=== PATIENT | male | born 1935 | race Caucasian/White ===

== ENCOUNTER 2020-10-28 11:00 | Outpatient (REF) | payer MEDICARE, SELFPAY | END 2020-10-28 11:01 | disposition home or self-care (01) | LOC: HO.LAB 11:00 | PROVIDERS: PCP Internal Medicine; Visit Provider Internal Medicine | DX: Z20.822 Contact with and (suspected) exposure to COVID-19 (principal) | CPT/HCPCS: 36415; C9803; U0003 ==

== ENCOUNTER 2021-01-11 14:23 | Emergency (ER) | payer MEDICARE, SELFPAY ==
[2021-01-11 15:12] VITALS: BP 177/84; PULSE 66; RESP 18; TEMP 36.7; O2SAT 99; BMI 22.8
[2021-01-11 18:48] LABS: MANUAL DIFF FLAG NO
[2021-01-11 18:49] LABS: Basophils Percent Auto 0.4 % (0-2); Eosinophils Absolute Auto 0.1 X10*3/uL (0.0-0.4); Eosinophils Percent Auto 1.6 % (0-4); Hematocrit 41.5 % (42-52); Imm Gran Abs Auto 0.02 X10*3/uL (0.00-0.03); Imm Gran Pct Auto 0.3 % (0.0-0.4); Lymphocytes Absolute Auto 1.2 X10*3/uL (1.2-4.9); Lymphocytes Percent Auto 17.6 % (20-40); Mean Corpuscular HGB Conc 33.7 g/dl (31.0-36.0); Mean Corpuscular Hemoglobin 31.5 pg (27.0-33.0); Mean Corpuscular Volume 93.3 fL (80-98); Mean Platelet Volume 11.1 fL (9.4-12.4); Monocytes Absolute Auto 0.4 X10*3/uL (0.1-1.2); Monocytes Percent Auto 5.3 % (2-11); Neutrophils Absolute Auto 5.2 X10*3/uL (2.0-8.3); Neutrophils Percent Auto 74.8 % (45-73); Platelet Count 204 X10*3/uL (160-400); Red Blood Count 4.45 X10*6/uL (4.60-5.80); Red Cell Distribution Width 11.8 % (11.0-16.0); White Blood Count 6.9 X10*3/uL (4.8-10.8)
[2021-01-11 18:55] LABS: Prothrombin Time 12.2 SEC (10.8-13.0)
[2021-01-11 18:58] LABS: Partial Thromboplastin Time 33.6 SEC (24.1-38.0)
[2021-01-11 19:12] LABS: Alanine Aminotransferase 29 U/L (0-40); Albumin Level 4.5 g/dL (3.5-5.0); Alkaline Phosphatase 59 U/L (39-117); Anion Gap 14 (12-20); Aspartate Amino Transferase 26 U/L (5-37); Bilirubin Direct 0.3 mg/dL (0.0-0.5); Bilirubin Total 0.9 mg/dL (0.0-1.0); Blood Urea Nitrogen 12 mg/dL (9-16); Calcium 9.3 mg/dL (8.4-10.2); Carbon Dioxide 30 mmol/L (22-29); Chloride 101 mmol/L (96-108); Creatinine Clr Calc Pharmacy 71.1; Estimated Glomerular Filt Rate > 60; Glucose Random 91 mg/dL (60-115); Lipase 12 U/L (8-78); Potassium 3.9 mmol/L (3.3-5.1); Sodium 141 mmol/L (135-145); Total Protein 7.5 g/dL (6.5-8.0)
[2021-01-11 21:32] VITALS: BP 170/80; PULSE 65
[2021-01-11 21:35] VITALS: BP 179/82; PULSE 63
[2021-01-11 21:35] LABS: OBS Int Ctl Valid YES; OBS1 NEGATIVE (NEGATIVE)
[2021-01-11 21:36] VITALS: BP 172/81; PULSE 64
[2021-01-11 21:39] VITALS: BP 172/81; PULSE 64; RESP 18; TEMP 36.6; O2SAT 98
--- NOTE | 2021-01-11 21:45 | ED_ITS ---
HPI - GI Bleed General Chief complaint: GI Bleed Stated complaint: RECTAL BLEED Time Seen by Provider: 01/11/21 21:17 History of Present Illness HPI Narrative: Patient is 85 years old presents today with having brown stool that looks darker than usual. Patient denies any fever chills no chest pain or shortness of breath no systemic complaints. Patient from home. Patient not on blood thinners. Related Data Allergies Allergy/AdvReac Type Severity Reaction Status Date / Time Penicillins Allergy Unknown ANXIETY Verified 01/11/21 15:12 Review of Systems Review of Systems: Constitutional: No Weight loss, No Fever, No Chills, No Night Sweats, No Fatigue, No Malaise ENT/Mouth: No Hearing loss, No Ear Pain, No Nasal Congestion, No Sinus Pain, No Hoarseness, No sore throat, No Rhinorrhea, No Swallowing Difficulty Eyes: No Eye Pain, No Swelling, No Redness, No Foreign Body, No Discharge, No Vision Changes Cardiovascular: No Chest Pain, No SOB, No Dyspnea on Exertion, No Orthopnea, No Edema, No Palpitations Respiratory: No Cough, No Sputum, No Wheezing, No Smoke Exposure, No Dyspnea Gastrointestinal: No Nausea, No Vomiting, No Diarrhea, No Constipation, No abdominal Pain, No Hematochezia, No Melena Genitourinary: no irregular bleeding, No Dysuria, No Urinary Frequency, No Hematuria, No Urinary Incontinence, No Urgency, No Flank Pain, No Urinary Flow Changes, No Hesitancy Musculoskeletal: No joint pain, No Myalgias, No Joint Swelling Skin: No Skin Lesions, No rash Neuro: No Weakness, No Numbness, No Paresthesias, No Loss of Consciousness, No Dizziness, No Headache Psych: No Anxiety/Panic, No Depression, No SI/HI/AH/VH, No Social Issues, Heme/Lymph: No Bruising, No Bleeding,No Lymphadenopathy Endocrine: No Polyuria, No Polydipsia, No Temperature Intolerance [facility] Past Medical History Attestation statement: The following information was validated with the patient. Medical History Anxiety Congestive heart failure High blood cholesterol High blood pressure Social History Social History Advance Directives: No Physical Exam Vital Signs: Vital Signs: Last Vital Signs Temp 97.8 F 01/11/21 21:39 Pulse 64 01/11/21 21:39 Resp 18 01/11/21 21:39 BP 172/81 H 01/11/21 21:39 Pulse Ox 98 01/11/21 21:39 Body Mass Index 22.8 Appearance: Alert. Oriented X3. No acute distress. Eyes: Pupils equal, round and reactive to light. ENT: Pharynx normal. Neck: Normal inspection. Neck supple. No lymph nodes noted. No crepitus CVS: Normal heart rate and rhythm. Pulses normal. Normal S1 and S2 Respiratory: No respiratory distress. Breath sounds normal. No Wheezing. No rales Abdomen: Soft and nontender. No rigidity. No distention. good BS x4 Rectal exam done with tech present. It was brown stool. Skin: Skin warm and dry. Normal skin color. Normal skin turgor. Extremities: No lower extremity edema. Neurovascular intact to all extremities. No Lacerations. No Rash Neuro: Oriented X 3. No motor deficit. No sensory deficit. Moving all e xtermities. No slurred speech MDM - GI Bleed MDM Narrative Medical decision making narrative: Well-appearing no acute distress. Patient is hemoglobin is baseline. Stool was guaiac negative. Will discharge patient home. Close follow-up outpatient basis per Lab Data Result diagrams: 01/11/21 18:33 01/11/21 18:32 Labs: Lab Results 01/11/21 01/11/21 01/11/21 Range/Units 18:32 18:32 18:33 WBC 6.9 (4.8-10.8) X10*3/uL RBC 4.45 L (4.60-5.80) X10*6/uL Hgb 14.0 (14.0-18.0) g/dl Hct 41.5 L (42-52) % MCV 93.3 (80-98) fL MCH 31.5 (27.0-33.0) pg MCHC 33.7 (31.0-36.0) g/dl RDW 11.8 (11.0-16.0) % Plt Count 204 (160-400) X10*3/uL MPV 11.1 (9.4-12.4) fL Immature Gran % (Auto) 0.3 (0.0-0.4) % Neut % (Auto) 74.8 H (45-73) % Lymph % (Auto) 17.6 L (20-40) % [place] % (Auto) 5.3 (2-11) % Eos % (Auto) 1.6 (0-4) % Baso % (Auto) 0.4 (0-2) % Lymph # (Auto) 1.2 (1.2-4.9) X10*3/uL [place] # (Auto) 0.4 (0.1-1.2) X10*3/uL Eos # (Auto) 0.1 (0.0-0.4) X10*3/uL Baso # (Auto) 0.0 (0.0-0.2) X10*3/uL Abs Immat Gran (auto) 0.02 (0.00-0.03) X10*3/uL Absolute Neuts (auto) 5.2 (2.0-8.3) X10*3/uL Absolute Nucleated RBC 0.000 (0.0-0.012) X10*3/uL Nucleated RBC % (auto) 0.0 (0.0-0.2) /100WBC PT 12.2 (10.8-13.0) SEC INR 1.0 (0.9-1.1) APTT 33.6 (24.1-38.0) SEC Sodium 141 (135-145) mmol/L Potassium 3.9 (3.3-5.1) mmol/L Chloride 101 (96-108) mmol/L Carbon Dioxide 30 H (22-29) mmol/L Anion Gap 14 (12-20) BUN 12 (9-16) mg/dL Creatinine 0.71 (0.5-1.4) mg/dL Estim Creat Clear Calc 71.1 Estimated GFR > 60 Random Glucose 91 (60-115) mg/dL Calcium 9.3 (8.4-10.2) mg/dL Total Bilirubin 0.9 (0.0-1.0) mg/dL Direct Bilirubin 0.3 (0.0-0.5) mg/dL AST 26 (5-37) U/L ALT 29 (0-40) U/L Alkaline Phosphatase 59 (39-117) U/L Total Protein 7.5 (6.5-8.0) g/dL Albumin 4.5 (3.5-5.0) g/dL Lipase 12 (8-78) U/L Stool Occult Blood (NEGATIVE) 01/11/21 Range/Units 21:30 WBC (4.8-10.8) X10*3/uL RBC (4.60-5.80) X10*6/uL Hgb (14.0-18.0) g/dl Hct (42-52) % MCV (80-98) fL MCH (27.0-33.0) pg MCHC (31.0-36.0) g/dl RDW (11.0-16.0) % Plt Count (160-400) X10*3/uL MPV (9.4-12.4) fL Immature Gran % (Auto) (0.0-0.4) % Neut % (Auto) (45-73) % Lymph % (Auto) (20-40) % [place] % (Auto) (2-11) % Eos % (Auto) (0-4) % Baso % (Auto) (0-2) % Lymph # (Auto) (1.2-4.9) X10*3/uL [place] # (Auto) (0.1-1.2) X10*3/uL Eos # (Auto) (0.0-0.4) X10*3/uL Baso # (Auto) (0.0-0.2) X10*3/uL Abs Immat Gran (auto) (0.00-0.03) X10*3/uL Absolute Neuts (auto) (2.0-8.3) X10*3/uL Absolute Nucleated RBC (0.0-0.012) X10*3/uL Nucleated RBC % (auto) (0.0-0.2) /100WBC PT (10.8-13.0) SEC INR (0.9-1.1) APTT (24.1-38.0) SEC Sodium (135-145) mmol/L Potassium (3.3-5.1) mmol/L Chloride (96-108) mmol/L Carbon Dioxide (22-29) mmol/L Anion Gap (12-20) BUN (9-16) mg/dL Creatinine (0.5-1.4) mg/dL Estim Creat Clear Calc Estimated GFR Random Glucose (60-115) mg/dL Calcium (8.4-10.2) mg/dL Total Bilirubin (0.0-1.0) mg/dL Direct Bilirubin (0.0-0.5) mg/dL AST (5-37) U/L ALT (0-40) U/L Alkaline Phosphatase (39-117) U/L Total Protein (6.5-8.0) g/dL Albumin (3.5-5.0) g/dL Lipase (8-78) U/L Stool Occult Blood NEGATIVE (NEGATIVE) Discharge Plan Discharge Clinical Impression: Abnormal stool color Patient Disposition: Home, Self-Care Instructions: Normal Exam (ED) Referrals: Adeola Watters MD [Primary Care Provider] - 2 days
== END 2021-01-11 22:01 | disposition home or self-care (01) ==
PROVIDERS: Emergency Provider Emergency Medicine Emergency Medical Services; PCP Internal Medicine
DX: K62.5 Hemorrhage of anus and rectum (principal)
CPT/HCPCS: 36415; 80048; 80076; 82272; 83690; 85025; 85610; 85730; 99283

== ENCOUNTER 2022-01-27 11:25 | Emergency (ER) | payer OTHER, SELFPAY ==
[2022-01-27 11:56] VITALS: BP 153/68; PULSE 70; RESP 16; TEMP 37.3; O2SAT 97; BMI 23.3
[2022-01-27 12:06] VITALS: BP 153/68; PULSE 70; RESP 16; TEMP 37.3; O2SAT 97
[2022-01-27 12:07] LABS: Glucose, Whole Blood 94 mg/dL (60-115)
[2022-01-27 12:47] LABS: MANUAL DIFF FLAG NO
[2022-01-27 12:48] LABS: Basophils Percent Auto 0.4 % (0-2); Eosinophils Absolute Auto 0.1 X10*3/uL (0.0-0.4); Eosinophils Percent Auto 2.4 % (0-4); Hematocrit 38.6 % (42.0-52.0); Hemoglobin 13.3 g/dl (14.0-18.0); Imm Gran Abs Auto 0.01 X10*3/uL (0.00-0.03); Imm Gran Pct Auto 0.2 % (0.0-0.4); Lymphocytes Absolute Auto 1.1 X10*3/uL (1.2-4.9); Lymphocytes Percent Auto 21.1 % (20-40); Mean Corpuscular HGB Conc 34.5 g/dl (31.0-36.0); Mean Corpuscular Hemoglobin 31.2 pg (27.0-33.0); Mean Corpuscular Volume 90.6 fL (80.0-98.0); Mean Platelet Volume 10.4 fL (9.4-12.4); Monocytes Absolute Auto 0.4 X10*3/uL (0.1-1.2); Monocytes Percent Auto 7.4 % (2-11); Neutrophils Absolute Auto 3.4 x10*3/uL (2.0-8.3); Neutrophils Percent Auto 68.5 % (45-73); Platelet Count 175 X10*3/uL (160-400); Red Blood Count 4.26 X10*6/uL (4.60-5.80); Red Cell Distribution Width 11.7 % (11.0-16.0)
[2022-01-27 13:01] LABS: Appearance Urine CLEAR; Color Urine YELLOW; Glucose Urine UA NEG (NEG); Leukocyte Esterase Urine NEG (NEG); Nitrite Urine NEG (NEG); PH 6.5 (5.0-8.0); Urine Blood NEG (NEG); Urine Ketones NEG (NEG); Urine Protein NEG (NEG-TRACE)
[2022-01-27 13:11] LABS: Alanine Aminotransferase 17 U/L (0-40); Alkaline Phosphatase 54 U/L (39-117); Anion Gap 13 (12-20); Aspartate Amino Transferase 20 U/L (5-37); Bilirubin Total 1.2 mg/dL (0.0-1.0); Blood Urea Nitrogen 17 mg/dL (9-16); Calcium 9.3 mg/dL (8.4-10.2); Carbon Dioxide 26 mmol/L (22-29); Chloride 106 mmol/L (96-108); Creatinine Clr Calc Pharmacy 70.8; Estimated Glomerular Filt Rate > 60; Glucose Random 96 mg/dL (60-115); Potassium 3.8 mmol/L (3.3-5.1); Sodium 141 mmol/L (135-145); Total Protein 6.9 g/dL (6.5-8.0)
--- NOTE | 2022-01-27 21:26 | ED_ITS ---
HPI - General Adult General Chief complaint: General Medical Stated complaint: high bp Time Seen by Provider: 01/27/22 11:57 Source: patient Mode of arrival: ambulatory Limitations: language barrier History of Present Illness HPI narrative: 86-year-old Gabonese-speaking male here because he wants the physical exam. He has no complaints, his medical problems include constipation, hypertension, hyperlipidemia. Patient wishes to be physically examined, as he has not seen his PCP in 2 years in-person due to COVID. Related Data Allergies Allergy/AdvReac Type Severity Reaction Status Date / Time Penicillins Allergy Unknown ANXIETY Verified 01/11/21 15:12 Review of Systems Constitutional: Constitutional: Denies body ache(s), Denies chills, Denies fa tigue, Denies fever(s), Denies headache(s), Denies malaise and Denies weakness Eyes: Eyes: Denies diplopia ENT: Denies vertigo, Denies dizziness, Denies otalgia, Denies headache(s), Denies mouth pain, Denies post nasal drip, Denies sinus pain, Denies sinus pressure, Denies sore throat and Denies throat swelling Cardiovascular: Cardiovascular: Denies chest pain, Denies syncope, Denies leg edema, Denies lightheadedness, Denies Loss of Consciousness, Denies palpitations and Denies dyspnea Respiratory: Respiratory: Denies chest congestion, Denies cough and Denies dyspnea Gastrointestinal: Gastrointestinal: Denies abdominal pain, Denies hematochezia, Denies constipation, Denies diarrhea and Denies vomiting Musculoskeletal: Musculoskeletal: Reports no additional musculoskeletal complaints Neurologic: Denies confusion, Denies vertigo, Denies dizziness, Denies synco pe, Denies headache(s) and Denies weakness Psychiatric: Psychiatric: Denies anxiety, Denies confusion and Denies depression Endocrine: Endocrine: Denies fatigue and Denies palpitations Allergic/Immunologic: Allergic/Immunologic: Denies throat swelling PMFSH Past Medical History Medical History Anxiety Congestive heart failure High blood cholesterol High blood pressure Social History Social History Advance Directives: No Advance Directives Information Provided: No Physical Exam ED Vital Signs: Vital Signs - 24 hr 01/27/22 11:56 01/27/22 12:06 Temperature 99.1 F 99.1 F Pulse Rate 70 70 Respiratory Rate 16 16 Blood Pressure 153/68 H 153/68 H Pulse Oximetry 97 97 BMI result Body Mass Index 23.3 Const General: comfortable, no acute distress, alert and awake; No confusion Nutritional Appearance: cachectic Orientation/consciousness: patient oriented x3 and No confusion Limitations: no limitations HENMT Head: Yes normal to inspection, Yes normocephalic and Yes atraumatic Ears: hearing grossly normal bilaterally, TM's normal bilaterally and EAC's normal General nose exam: Normal external nose present and Normal nares present Face and sinus: Yes normal facial exam and Yes sinuses nontender Mouth: Normal oral and palatal mucosa present Teeth and gingiva: poor dentition Throat: Yes posterior oropharynx normal Eyes Conjunctivae: conjunctivae normal Sclerae: sclerae normal Pupils: Equal, round and reactive pupils present EOM: EOMs intact bilaterally Neck Neck: Yes normal visual inspection, Yes full ROM, Yes no lymphadenopathy, Yes no meningeal signs, Yes trachea midline and Yes supple Resp Effort & Inspection: normal respiratory effort and able to speak in complete sentences Auscultation: clear to auscultation bilaterally, no crackles, no rales, no rhonchi and no wheezes Cardio Rate: regular rate Rhythm: regular rhythm General: Yes no CVA tenderness Back/Spine/Pelvis Back: no CVA tenderness Skin General skin exam: no rashes or lesions noted Neuro General: patient oriented x3, no meningeal signs and No confusion Cranial nerves: Yes Equal, round and reactive pupils present Extrem General: Yes normal to inspection, Yes full ROM and Yes capillary refill normal Psych Appearance: grossly normal Mental Status: mental status grossly normal Speech and movement: Normal speech and movement present Affect: normal affect Course Course Course Narrative: 86-year-old Gabonese-speaking male presents for request for evaluation for physical exam as he has not seen his PCP in person for 2 years due to the COVID pandemic. On exam, patient has normal findings. Labs are within normal limits. Counseled patient follow-up is primary care provider. Medical Decision Making Lab Data Result diagrams: 01/27/22 12:42 01/27/22 12:42 Labs: Lab Results 01/27/22 01/27/22 01/27/22 Range/Units 12:04 12:42 12:42 WBC 5.0 (4.8-10.8) X10*3/uL RBC 4.26 L (4.60-5.80) X10*6/uL Hgb 13.3 L (14.0-18.0) g/dl Hct 38.6 L (42.0-52.0) % MCV 90.6 (80.0-98.0) fL MCH 31.2 (27.0-33.0) pg MCHC 34.5 (31.0-36.0) g/dl RDW 11.7 (11.0-16.0) % Plt Count 175 (160-400) X10*3/uL MPV 10.4 (9.4-12.4) fL Immature Gran % (Auto) 0.2 (0.0-0.4) % Neut % (Auto) 68.5 (45-73) % Lymph % (Auto) 21.1 (20-40) % [place] % (Auto) 7.4 (2-11) % Eos % (Auto) 2.4 (0-4) % Baso % (Auto) 0.4 (0-2) % Lymph # (Auto) 1.1 L (1.2-4.9) X10*3/uL [place] # (Auto) 0.4 (0.1-1.2) X10*3/uL Eos # (Auto) 0.1 (0.0-0.4) X10*3/uL Baso # (Auto) 0.0 (0.0-0.2) X10*3/uL Abs Immat Gran (auto) 0.01 (0.00-0.03) X10*3/uL Absolute Neuts (auto) 3.4 (2.0-8.3) x10*3/uL Absolute Nucleated RBC 0.000 (0.0-0.012) X10*3/uL Nucleated RBC % (auto) 0.0 (0.0-0.2) /100WBC Sodium 141 (135-145) mmol/L Potassium 3.8 (3.3-5.1) mmol/L Chloride 106 (96-108) mmol/L Carbon Dioxide 26 (22-29) mmol/L Anion Gap 13 (12-20) BUN 17 H (9-16) mg/dL Creatinine 0.70 (0.5-1.4) mg/dL Estim Creat Clear Calc 70.8 Estimated GFR > 60 POC Glucose 94 (60-115) mg/dL Random Glucose 96 (60-115) mg/dL Calcium 9.3 (8.4-10.2) mg/dL Total Bilirubin 1.2 H (0.0-1.0) mg/dL AST 20 (5-37) U/L ALT 17 (0-40) U/L Alkaline Phosphatase 54 (39-117) U/L Total Protein 6.9 (6.5-8.0) g/dL Albumin 4.0 (3.5-5.0) g/dL Urine Color Urine Appearance Urine pH (5.0-8.0) Ur Specific [place] (1.005-1.025) Urine Protein (NEG-TRACE) MG/DL Urine Glucose (UA) (NEG) MG/DL Urine Ketones (NEG) MG/DL Urine Blood (NEG) Urine Nitrite (NEG) Ur Leukocyte Esterase (NEG) 01/27/22 Range/Units 12:52 WBC (4.8-10.8) X10*3/uL RBC (4.60-5.80) X10*6/uL Hgb (14.0-18.0) g/dl Hct (42.0-52.0) % MCV (80.0-98.0) fL MCH (27.0-33.0) pg MCHC (31.0-36.0) g/dl RDW (11.0-16.0) % Plt Count (160-400) X10*3/uL MPV (9.4-12.4) fL Immature Gran % (Auto) (0.0-0.4) % Neut % (Auto) (45-73) % Lymph % (Auto) (20-40) % [place] % (Auto) (2-11) % Eos % (Auto) (0-4) % Baso % (Auto) (0-2) % Lymph # (Auto) (1.2-4.9) X10*3/uL [place] # (Auto) (0.1-1.2) X10*3/uL Eos # (Auto) (0.0-0.4) X10*3/uL Baso # (Auto) (0.0-0.2) X10*3/uL Abs Immat Gran (auto) (0.00-0.03) X10*3/uL Absolute Neuts (auto) (2.0-8.3) x10*3/uL Absolute Nucleated RBC (0.0-0.012) X10*3/uL Nucleated RBC % (auto) (0.0-0.2) /100WBC Sodium (135-145) mmol/L Potassium (3.3-5.1) mmol/L Chloride (96-108) mmol/L Carbon Dioxide (22-29) mmol/L Anion Gap (12-20) BUN (9-16) mg/dL Creatinine (0.5-1.4) mg/dL Estim Creat Clear Calc Estimated GFR POC Glucose (60-115) mg/dL Random Glucose (60-115) mg/dL Calcium (8.4-10.2) mg/dL Total Bilirubin (0.0-1.0) mg/dL AST (5-37) U/L ALT (0-40) U/L Alkaline Phosphatase (39-117) U/L Total Protein (6.5-8.0) g/dL Albumin (3.5-5.0) g/dL Urine Color YELLOW Urine Appearance CLEAR Urine pH 6.5 (5.0-8.0) Ur Specific [place] 1.020 (1.005-1.025) Urine Protein NEG (NEG-TRACE) MG/DL Urine Glucose (UA) NEG (NEG) MG/DL Urine Ketones NEG (NEG) MG/DL Urine Blood NEG (NEG) Urine Nitrite NEG (NEG) Ur Leukocyte Esterase NEG (NEG) Discharge Plan Discharge Clinical Impression: Normal physical examination Patient Disposition: Home, Self-Care Additional Instructions: All of your labs and your urine were normal today. Please follow-up with your primary care provider. Please return to emergency room for any new or concerning symptoms. Todos kirsten laboratorios y marquis orina fueron normales hoy. Por favor, celine un seguimiento con marquis proveedor de atenci?n primaria. Regrese a la barrington de emergencias por cualquier s?ntoma nuevo o preocupante. Interventions: ED Discharge Assessment Last Done: 01/27/22 13:58 Discharge Date/Time: 01/27/22 14:00 Print Language: Gabonese
== END 2022-01-27 14:00 | disposition home or self-care (01) ==
PROVIDERS: Physician Assistant; Emergency Provider Emergency Medicine; PCP Internal Medicine
DX: Z71.1 Person with feared health complaint in whom no diagnosis is made (principal); I11.0 Hypertensive heart disease with heart failure; I50.9 Heart failure, unspecified; Z88.0 Allergy status to penicillin
CPT/HCPCS: 36415; 80053; 81003; 82947; 85025; 99283

== ENCOUNTER 2024-02-12 12:20 | Outpatient (REF) | payer OTHER, SELFPAY ==
[2024-02-12 14:24] LABS: Alanine Aminotransferase 15 U/L (0-40); Albumin Level 4.2 g/dL (3.5-5.0); Alkaline Phosphatase 60 U/L (39-117); Anion Gap 13 (12-20); Aspartate Amino Transferase 17 U/L (5-37); Bilirubin Direct 0.3 mg/dL (0.0-0.5); Bilirubin Total 0.8 mg/dL (0.0-1.0); Blood Urea Nitrogen 16 mg/dL (9-16); Calcium 9.5 mg/dL (8.4-10.2); Carbon Dioxide 29 mmol/L (22-29); Chloride 103 mmol/L (96-108); Cholesterol 169 mg/dL (<200); Estimated Glomerular Filt Rate > 60; Glucose Random 84 mg/dL (60-115); HDL Cholesterol 50 mg/dL (>40); LDL Cholesterol Calculated 103 mg/dL (<100); Sodium 141 mmol/L (135-145); Total Protein 7.3 g/dL (6.5-8.0); Triglycerides 82 mg/dL (<150)
[2024-02-12 14:38] LABS: Vitamin D 25-OH Total 28.1 ng/mL (>30)
[2024-02-12 14:49] LABS: Reflex LDLD? No
[2024-02-14 23:37] LABS: TS Negative Control Passed; TS Panel A 1; TS Panel B 2; TS Positive Control Passed; TSpotTB Negative (Negative)
== END 2024-02-12 12:21 | disposition home or self-care (01) ==
LOC: HO.LAB 12:20
PROVIDERS: PCP Internal Medicine; Visit Provider Internal Medicine
DX: Z00.00 Encounter for general adult medical examination without abnormal findings (principal); Z11.1 Encounter for screening for respiratory tuberculosis; E78.00 Pure hypercholesterolemia, unspecified; I10 Essential (primary) hypertension
CPT/HCPCS: 36415; 80053; 80061; 82248; 82306; 86481

== ENCOUNTER 2025-01-02 16:39 | Emergency (ER) | payer OTHER, SELFPAY ==
[2025-01-02 17:03] VITALS: BP 208/92; PULSE 66; RESP 16; TEMP 37; O2SAT 98; BMI 22.9
--- NOTE | 2025-01-02 17:05 | ED_ITS ---
HPI - Anxiety General Chief Complaint: Anxiety Stated Complaint: anxiety Related Data Allergies Allergy/AdvReac Type Severity Reaction Status Date / Time Penicillins Allergy Unknown ANXIETY Verified 01/02/25 17:04 [facility] Past Medical History Medical History Anxiety Congestive heart failure High blood cholesterol High blood pressure Social History Social History Advance Directives: No Advance Directives Information Provided: No Physical Exam 2 Vital Signs: Vital Signs: Last Vital Signs Temp 98.6 F 01/02/25 17:03 Pulse 66 01/02/25 17:03 Resp 16 01/02/25 17:03 BP 208/92 H 01/02/25 17:03 Pulse Ox 98 01/02/25 17:03 O2 Del Method Room Air 01/02/25 17:03 BMI result Body Mass Index 22.9 Course Course Course Narrative: This is an RME performed by Laurita Thomas CNP: Additional HPI, ROS, PE not included below will be deferred to primary provider. Complaining of anxiety and feeling unsettled . he is prescribed hydroxyzine for anxiety, has a pills with him but did not take any today. He denies a sensation of impending doom, chest pain, shortness of breath, difficulty breathing. He states that he simply just feels nervous. He is hypertensive 208/92, no tachycardia, endorses compliance with his lisinopril, may be secondary to his anxiety however given his age, will obtain screening serum labs. No respiratory distress. Lives alone. Medical Decision Making Lab Data 01/02/25 17:26 01/02/25 17:26 Labs: Lab Results 01/02/25 Range/Units 17:26 WBC 6.7 (4.8-10.8) X10*3/uL RBC 4.26 L (4.60-5.80) X10*6/uL Hgb 13.7 L (14.0-18.0) g/dl Hct 38.2 L (42.0-52.0) % MCV 89.7 (80.0-98.0) fL MCH 32.2 (27.0-33.0) pg MCHC 35.9 (31.0-36.0) g/dl RDW 11.8 (11.0-16.0) % Plt Count 208 (160-400) X10*3/uL MPV 10.1 (9.4-12.4) fL Immature Gran % (Auto) 0.3 (0.0-0.4) % Neut % (Auto) 60.5 (45-73) % Lymph % (Auto) 19.5 L (20-40) % [place] % (Auto) 7.0 (2-11) % Eos % (Auto) 12.3 H (0-4) % Baso % (Auto) 0.4 (0-2) % Lymph # (Auto) 1.3 (1.2-4.9) X10*3/uL [place] # (Auto) 0.5 (0.1-1.2) X10*3/uL Eos # (Auto) 0.8 H (0.0-0.4) X10*3/uL Baso # (Auto) 0.0 (0.0-0.2) X10*3/uL Abs Immat Gran (auto) 0.02 (0.00-0.03) X10*3/uL Absolute Neuts (auto) 4.0 (2.0-8.3) x10*3/uL Absolute Nucleated RBC 0.000 (0.0-0.012) X10*3/uL Nucleated RBC % (auto) 0.0 (0.0-0.2) /100WBC Sodium 139 (135-145) mmol/L Potassium 4.0 (3.3-5.1) mmol/L Chloride 103 (96-108) mmol/L Carbon Dioxide 27 (22-29) mmol/L Anion Gap 13 (12-20) BUN 13 (9-16) mg/dL Creatinine 0.65 (0.5-1.4) mg/dL Estim Creat Clear Calc 72.2 Estimated GFR > 60 Random Glucose 92 (60-115) mg/dL Calcium 9.3 (8.4-10.2) mg/dL Magnesium 2.1 (1.6-2.6) mg/dL Total Bilirubin 0.8 (0.0-1.0) mg/dL AST 20 (5-37) U/L ALT 13 (0-40) U/L Alkaline Phosphatase 71 (39-117) U/L Troponin I High Sens < 2.7 (<3.5-35.0) ng/L Total Protein 7.7 (6.5-8.0) g/dL Albumin 4.2 (3.5-5.0) g/dL TSH 2.68 (0.32-4.0) uIU/mL Ethyl Alcohol < 10 mg/dL Discharge Plan Discharge Clinical Impression: Acute anxiety Patient Disposition: Left W/O Completing Treatment Discharge Date/Time: 01/02/25 22:22
--- NOTE | 2025-01-02 17:11 | ECG_ITS ---
Test Reason : CP Blood Pressure : */* mmHG Vent. Rate : 58 BPM Atrial Rate : 58 BPM P-R Int : 152 ms QRS Dur : 94 ms QT Int : 430 ms P-R-T Axes : 64 -23 52 degrees QTcB Int : 422 ms Sinus bradycardia with Premature atrial complexes Minimal voltage criteria for LVH, may be normal variant ( [place] product ) Borderline ECG When compared with ECG of 06-Feb-2019 09:59, Premature atrial complexes are now Present Referred By: Kary Thomas Electronically Signed By: NILAM STAUFFER MD
[2025-01-02 17:32] LABS: MANUAL DIFF FLAG NO
[2025-01-02 17:33] LABS: Basophils Percent Auto 0.4 % (0-2); Eosinophils Absolute Auto 0.8 X10*3/uL (0.0-0.4); Eosinophils Percent Auto 12.3 % (0-4); Hematocrit 38.2 % (42.0-52.0); Hemoglobin 13.7 g/dl (14.0-18.0); Imm Gran Abs Auto 0.02 X10*3/uL (0.00-0.03); Imm Gran Pct Auto 0.3 % (0.0-0.4); Lymphocytes Absolute Auto 1.3 X10*3/uL (1.2-4.9); Lymphocytes Percent Auto 19.5 % (20-40); Mean Corpuscular HGB Conc 35.9 g/dl (31.0-36.0); Mean Corpuscular Hemoglobin 32.2 pg (27.0-33.0); Mean Corpuscular Volume 89.7 fL (80.0-98.0); Mean Platelet Volume 10.1 fL (9.4-12.4); Monocytes Absolute Auto 0.5 X10*3/uL (0.1-1.2); Neutrophils Percent Auto 60.5 % (45-73); Platelet Count 208 X10*3/uL (160-400); Red Blood Count 4.26 X10*6/uL (4.60-5.80); Red Cell Distribution Width 11.8 % (11.0-16.0); White Blood Count 6.7 X10*3/uL (4.8-10.8)
[2025-01-02 17:58] LABS: Alanine Aminotransferase 13 U/L (0-40); Albumin Level 4.2 g/dL (3.5-5.0); Alkaline Phosphatase 71 U/L (39-117); Anion Gap 13 (12-20); Aspartate Amino Transferase 20 U/L (5-37); Bilirubin Total 0.8 mg/dL (0.0-1.0); Blood Urea Nitrogen 13 mg/dL (9-16); Calcium 9.3 mg/dL (8.4-10.2); Carbon Dioxide 27 mmol/L (22-29); Chloride 103 mmol/L (96-108); Creatinine Clr Calc Pharmacy 72.2; Estimated Glomerular Filt Rate > 60; Ethanol < 10 mg/dL; Glucose Random 92 mg/dL (60-115); Magnesium 2.1 mg/dL (1.6-2.6); Sodium 139 mmol/L (135-145); Total Protein 7.7 g/dL (6.5-8.0)
[2025-01-02 17:59] LABS: Troponin-I High Sensitivity < 2.7 ng/L (<3.5-35.0)
[2025-01-02 18:12] LABS: TSH reflex Free T4 2.68 uIU/mL (0.32-4.0)
== END 2025-01-02 22:22 | disposition left against medical advice (07) ==
PROVIDERS: Nurse Practitioner Family; Emergency Provider Emergency Medicine; PCP Internal Medicine
DX: F41.9 Anxiety disorder, unspecified (principal); I11.0 Hypertensive heart disease with heart failure; I50.9 Heart failure, unspecified; Z79.899 Other long term (current) drug therapy
CPT/HCPCS: 36415; 80053; 80307; 83735; 84443; 84484; 85025; 93005; 99283

== ENCOUNTER → 2025-01-02 17:11 | Outpatient (BNV) | payer OTHER, SELFPAY | PROVIDERS: Emergency Provider Emergency Medicine; PCP Internal Medicine; Visit Provider Internal Medicine Cardiovascular Disease | DX: R07.9 Chest pain, unspecified (principal); R00.1 Bradycardia, unspecified; R94.31 Abnormal electrocardiogram [ECG] [EKG] | CPT/HCPCS: 93010 ==

== ENCOUNTER 2025-02-26 12:39 | Outpatient (REF) | payer OTHER, SELFPAY ==
--- OUTSIDE RECORDS SUMMARY | 2025-02-26 12:41 | XMS_ITS | Encounter Summary ---
Author Organization [employer] Address [address] [place] [address] Care Team Providers Care Hasher Machine Operator Name Role Phone Adeola Watters MD Primary Care Provider + Reason for Visit * Reason Comments Memory Loss Encounter Details Date Type Department Care Team ([facility] st Contact Info) Description 02/26/2025 11:15 AM EDT Office Visit [facility] [address], [place] [id number] Adeola Watters MD [address] [place], [place] [phone] Memory impairment (Primary Dx) Social History Tobacco Use Types Packs/Day Years Used Date Smoking Tobacco: Never Smokeless Tobacco: Never Tobacco Cessation:Counseling Given: Not Answered Alcohol Use Standard Drinks/Week Comments Never 0 (1 standard drink = 0.6 oz pur e alcohol) Housing Stability Answer Date Recorded What is your housing situation today? I have vaishali nogueira 01/20/[address] you li ve. Do you have problems with any of the following? None of the above 01/20/2025 Food Insecurity Answer Date Recorded Within the past 12 months, y ou worried that your food would run out before you got money to buy more: Never True 01/20/2025 Within the past 12 months,th e food you bought just didn't last and you didn't have enough money to get more: Never True 06/2025 Transportation Answer Date Recorded In the past 12 months, has l ack of transportation kept you from medical appts, meetings, work or from getting things needed for daily living? No 01/20/2025 Utilities Answer Date Recorded In the past 12 months, has t he electric, gas, oil or water company threatened to shut off services in your home? No 01/20/2025 Depression Answer Date Recorded Patient Health Questionnaire-2 Score 0 11/06/2023 Internet Access Answer Date Recorded Internet Access Q1 No 01/20/2025 Internet Access Q2 Not on file 01/20/2025 Sex and Gender Information Value Date Recorded Sex Assigned at Male 08/13/2022 10:18 AM EDT Legal Sex Male 10:18 AM EDT Gender Identity Male 08/13/2022 10:18 AM EDT Sexual Orientation Choose not to disclose 2021 10:18 AM EDT documented as of this encounter Last Filed Vital Signs Vital Sign Reading Time Taken Comments Blood Pressure 156/75 02/26/2025 11:36 AM EDT Pulse 66 02/26/2025 11:36 AM EDT Temperature 36.4 ??C (97.5 ??F) 02/26/2025 11:36 AM E DT Respiratory Rate 16 02/26/2025 11:36 AM EDT Oxygen Saturation 96% 02/26/2025 11:36 AM EDT Inhaled Oxygen Concentration - - Weight 64.2 kg (141 lb 8 oz) 02/26/2025 11:36 AM EDT Height 172.4 cm (5' 7.88 ) 02/26/2025 11:36 AM E DT Body Mass Index 21.59 02/26/2025 11:36 AM EDT documented in this encounter Plan of Treatment Upcoming Encounters Date Type Department Care Team (Late st Contact Info) Description 06/10/2025 11:15 AM EDT Office Visit [facility] [address] [place] [address] Adeola Watters MD [address] [place] [address] Scheduled Orders Name Type Priority Associated Diagnoses Orde r Schedule Vitamin B12/Folate, Serum Panel Lab Routine Memory impairment Expected: 02/26/2025, Expires: 02/26/2026 Syphilis Screen Lab Routine Memory impairment Expected: 02/26/2025 (Approximate), Expires: 02/26/2026 Basic Metabolic Panel Lab Routine Memory impairment Expected: 02/26/2025 (Approximate), Expires: 02/26/2026 documented as of this encounter Visit Diagnoses Diagnosis Memory impairment- Primary Memory loss documented in this encounter Care Teams Hasher Machine Operator Relationship Specialty Start Date End Date Adeola Watters MD [address] [place] [id number] PCP - General Family Medicine 05/29/17 documented as of this encounter
--- OUTSIDE RECORDS SUMMARY | 2025-02-26 12:41 | XMS_ITS | Encounter Summary ---
Author Organization [employer] Address [address] [facility] 7[address] [place] [address] Care Team Providers Care Controller Repairer And Tester Name Role Phone Adeola Watters MD Primary Care Provider + Reason for Visit * Reason Onset Date Comments Nurse Triage 02/25/2025 Encounter Details Date Type Department Care Team ([facility] st Contact Info) Description 02/25/2025 Telephone [facility] [address] [place], [place] [phone] Adeola Watters MD [address] [place], [place] [phone] Nurse Triage Social History Tobacco Use Types Packs/Day Years Used Date Smoking Tobacco: Never Smokeless Tobacco: Never Alcohol Use Standard Drinks/Week Comments Never 0 (1 standard drink = 0.6 oz pur e alcohol) Housing Stability Answer Date Recorded What is your housing situation today? I have vaishaliramos nogueira 01/20/[address] you [...] AM EDT documented as of this encounter Miscellaneous Notes * Telephone Encounter - Marcia Uribe RN - 02/25/2025 8:39 AM EDT Called pt. Sister [employer] logistics system engineer [id number] [address]. Pt. Sister states that pt. Has been losing hismemory over the last 3-4 months. Sister states left knee has become more painful. No problems with speech but, pt. Does repeat the same things over and over. Speech is otherwise clear, Protocol Used: Confusion - Delirium (Adult) Protocol-Based Disposition: See in Office or Video Visit Today or Tomorrow- appt tomorrow 02/26/25 at 1115am with PCP Positive Triage Question: * Longstanding confusion (e.g., dementia, stroke) and getting worse * All higher-acuity triage questions were negative * Telephone Encounter - Neeta Jade - 02/25/2025 8:12 AM EDT Symptom: Confusion Outcome: Schedule an urgent appointment (within 1 hour) or talk to a nurse or provider soon Reason: Started within the past 3 days The caller accepted this outcome. [phone] Sofie Allen (pt sister) documented in this encounter Plan of Treatment Upcoming Encounters Date Type Department Care Team (Late st Contact Info) Description 06/10/2025 11:15 AM EDT Office Visit [facility] [address] [place] [address] Adeola Watters MD [address] [place] [address] documented as of this encounter Visit Diagnoses Not on filedocumented in this encounter Care Teams Controller Repairer And Tester Relationship Specialty Start Date End Date Adeola Watters MD [address] [place] [phone] PCP - General Family Medicine 05/29/17 documented as of this encounter
--- OUTSIDE RECORDS SUMMARY | 2025-02-26 12:41 | XMS_ITS | Encounter Summary ---
Author Organization [employer] Address [address] [facility] [address] [place] [address] Care Team Providers Care Waiter/Waitress Second Class Name Role Phone Adeola Watters MD Primary Care Provider + Encounter Details Date Type Department Care Team (Latest Contact Info) Description 02/26/2025 Travel Social History Tobacco Use Types Packs/Day Years [...] AM EDT documented as of this encounter Plan of Treatment Upcoming Encounters Date Type Department Care Team (Late st Contact Info) Description 06/10/2025 11:15 AM EDT Office Visit [facility] [address] [place] [address] Adeola Watters MD [address] [place] [address] documented as of this encounter Visit Diagnoses Not on filedocumented in this encounter Care Teams Waiter/Waitress Second Class Relationship Specialty Start Date End Date Adeola Watters MD [address] [place] [phone] PCP - General Family Medicine 05/29/17 documented as of this encounter
--- OUTSIDE RECORDS SUMMARY | 2025-02-26 12:41 | XMS_ITS | Encounter Summary ---
Author Organization [employer] Address [address] [facility] 7t [place] [address] Care Team Providers Care Slitter Operator Name Role Phone Adeola Watters MD Primary Care Provider + Reason for Visit * Reason Onset Date Comments chart prep 02/25/2025 Encounter Details Date Type Department Care Team ([facility] st Contact Info) Description 02/25/2025 Telephone [facility]INE [address] [place], [place] [phone] Adeola Watters MD [address] [place], [place] [phone] chart prep Social History Tobacco Use Types Packs/Day Years [...] encounter Miscellaneous Notes * Telephone Encounter - Jocelin Valentin MA - 02/25/2025 9:45 AM EDT Chart Prep Labs: Last labs 02/12/24 from pcp, Labs from outside practice 12/2024 Images: not applicable Referrals: complete Vaccines due: Covid, RSV, and Zoster Screenings: not applicable Overdue care gaps: SBIRT, PHQ-9, ARSALAN-7, and Tobacco ED visit for anxiety 01/02/2025 report in chart documented in this encounter Plan of Treatment Upcoming Encounters Date Type Department Care Team (Late st Contact Info) Description 06/10/2025 11:15 AM EDT Office Visit [facility] [address] [place] [address] Adeola Watters MD [address] [place] [address] documented as of this encounter Visit Diagnoses Not on filedocumented in this encounter Care Teams Slitter Operator Relationship Specialty Start Date End Date Adeola Watters MD [address] [place] [address] PCP - General Family Medicine 05/29/17 documented as of this encounter
--- OUTSIDE RECORDS SUMMARY | 2025-02-26 12:41 | XMS_ITS | Encounter Summary ---
Author Organization [employer] Address [address] [facility] [address] [place] [address] Care Team Providers Care Solar Tech Name Role Phone Adeola Watters MD Primary Care Provider + Reason for Visit * Reason Onset Date Comments Appointment Request 01/09/2023 Encounter Details Date Type Department Care Team ([facility] st Contact Info) Description 01/09/2023 Telephone [facility] MEDICINE [address] [place], [place] [phone] Adeola Watters MD [address] [place], [place] [phone] Appointment Request Social History Tobacco Use Types Packs/Day Years Used Date Smoking Tobacco: Never Smokeless Tobacco: Never Alcohol Use Standard Drinks/Week Comments Never 0 (1 standard drink = 0.6 oz pur e alcohol) Depression Answer Date Recorded Patient Health Questionnaire-2 Score 0 10/25/2022 Sex and Gender Information Value Date Recorded Sex Assigned at Male 08/13/2022 10:18 AM EDT Legal Sex Male 10:18 AM EDT Gender Identity Male 08/13/2022 10:18 AM EDT Sexual Orientation Choose not to disclose 2021 10:18 AM EDT documented as of this encounter Miscellaneous Notes * Telephone Encounter - Sincere Tony - 01/09/2023 11:38 AM EDT Tc from pt and Sera SUN requesting an appt with provider for f/u. Please contact pt at [phone] documented in this encounter Plan of Treatment Upcoming Encounters Date Type Department Care Team (Late st Contact Info) Description 06/10/2025 11:15 AM EDT Office Visit [facility] MEDICINE [address] [place] [address] Adeola Watters MD [address] [place] [address] documented as of this encounter Visit Diagnoses Not on filedocumented in this encounter Care Teams Solar Tech Relationship Specialty Start Date End Date Adeola Watters MD [address] [place] [id number] PCP - General Family Medicine 05/29/17 documented as of this encounter
--- OUTSIDE RECORDS SUMMARY | 2025-02-26 12:42 | XMS_ITS | Encounter Summary ---
Author Organization [employer] Address [address] [facility] [address] [place] [address] Care Team Providers Care Health Therapist Name Role Phone Adeola Watters MD Primary Care Provider + Reason for Visit * Reason Comments Med Refill Encounter Details Date Type Department Care Team ([facility] st Contact Info) Description 12/29/2024 Refill [facility] MED[facility]INE [address] [place], [place] [phone] Adeola Watters MD [address] [place], [place] [phone] Other specified anxiety disorders Social History Tobacco Use Types Packs/Day Years Used Date Smoking Tobacco: Never Smokeless Tobacco: Never Alcohol Use Standard Drinks/Week Comments Never 0 (1 standard drink = 0.6 oz pur e alcohol) Housing Stability Answer Date Recorded What is your housing situation today? I have vaishali sing 11/06/[address] you li ve. Do you have problems with any of the following? None of the above 11/06/2023 Food Insecurity Answer Date Recorded Within the past 12 months, y ou worried that your food would run out before you got money to buy more: Never True 11/06/2023 Within the past 12 months,th e food you bought just didn't last and you didn't have enough money to get more: Never True Transportation Answer Date Recorded In the past 12 months, has l ack of transportation kept you from medical appts, meetings, work or from getting things needed for daily living? No 11/06/2023 Utilities Answer Date Recorded In the past 12 months, has t he [employer], gas, oil or water company threatened to shut off services in your home? No 11/06/2023 Depression Answer Date Recorded Patient Health Questionnaire-2 Score 0 11/06/2023 Sex and Gender Information Value Date Recorded [...] Description 06/10/2025 11:15 AM EDT Office Visit [facility] [address] [place] [phone] Adeola Watters MD [address] [place] [address] documented as of this encounter Visit Diagnoses Diagnosis Other specified anxiety disorders documented in this encounter Care Teams Health Therapist Relationship Specialty Start Date End Date Adeola Watters MD [address] [place] [phone] PCP - General Family Medicine 05/29/17 documented as of this encounter
--- OUTSIDE RECORDS SUMMARY | 2025-02-26 12:42 | XMS_ITS | Clinical Summary ---
Author Organization [email or web address] Address [address] [facility] [address] [place] [address] [address] Care [address] Light Servicer Name Role Phone Adeola Watters MD Primary Care Provider + Allergies Active Allergy Reactions Criticality Noted Date Comments Chlorpheniramine Anxiety,Nausea Only Low 09/11/2019 Penicillins 10/02/2010 Other reaction(s): unspecified Medications ammonium lactate (Amlactin) 12 % cream use daily 02/22/20 21 Active Multiple Vitamins-Minerals (Centrum Silver Adult 50+) tablet Ac tive omeprazole OTC (PriLOSEC OTC) 20 MG EC tablet Take 1 tablet by mouth. 10/21/19 19 Active zoster vaccine, live, (Zostavax) 55333 UNT/0.65ML injection inject 0.65 milliliter by subcutaneous route once 07/14/20 19 Active hydroCHLOROthiazid e (HYDRODiuril) 12.5 MG tablet TAKE 1 TABLET BY MOUTH EVERY DAY 90 tablet 3 03/18/20 23 Active polyethylene glycol, PEG, 3350 (Glycolax) 17 GM/SCOOP powder TAKE 17 GM MIXED IN 8 OUNCES OF WATER, COFFEE OR TEA ONCE DAILY 510 g 3 04/18/20 23 Active fluticasone (Flonase) 50 MCG/ACT nasal sprayIndications:R ight chronic serous otitis media Administer 1 spray into each nostril in the morning. 16 g 2 11/06/19 24 Active simvastatin (Zocor) 10 MG tabletIndications: Other hyperlipidemia TAKE 1 TABLET BY MOUTH AT BEDTIME 90 tablet 3 01/16/20 24 Active lisinopril 40 MG tablet TAKE 1 TABLET BY MOUTH EVERY DAY IN THE MORNING 90 tablet 1 10/22/19 25 Active hydrOXYzine HCl (Atarax) 25 MG tabletIndications: Other specified anxiety disorders Take 1 tablet (25 mg) by mouth if needed in the morning and at bedtime for itching. 60 tablet 12/31/19 25 Active Active Problems Problem Noted Date Diagnosed Date Protein-calorie malnutrition, unspecified severi ty 02/10/2024 Assessment & Plan (02/10/2024 1:30 PM EDT): - resolved - continue balanced meals, ENGINEERING DIRECTOR will help assist pt with grocery shopping and cooking - pt will ask HIM for a certification of his medical condition as it is apparently a requirement from his insurance in order to give him food assistance Primary osteoarthritis of left knee 02/10/2024 Assessment & Plan (02/10/2024 1:41 PM EDT): - pt is doing well on Tylenol PRN, he is ambulatory and rarely uses a cane - will re consult PRN for PT - ENGINEERING DIRECTOR will check that he has a shower chair to prevent falls at home - I did not think he needs a walker or a recliner at this time to decrease morbidity and morality from OA Food insecurity 02/10/2024 Assessment & Plan (02/10/2024 1:32 PM EDT): - insurance reportedly needs diagnosis information to cover for additional food assistance - pt will obtain diagnosis letter from HIM and will f/u with us PRN Right chronic serous otitis media 11/06/2023 Assessment & Plan (11/06/2023 1:36 PM EST): Will try fluticasone nasal spray x 1mo and fu with him Pre-op evaluation 07/19/2023 Assessment & Plan (07/19/2023 1:26 PM EDT): Low risk for low risk procedure RCRI score 0 which is 3.9% I was advise NPO I advise patient to take his blood pressure medications the day of the procedure with a small sip of water Encounter for preventive health examination 04/14 Assessment & Plan (05/03/2023 12:36 PM EDT): Discussed with patient re increase fresh fruit and vegetable intake. Counseled re moderate exercise as tolerated, up to 20min/d Patient feels safe at home. Eye exam up to date, will obtain ophthalmology records from this year CRC screen up to date, no need for further colonoscopy Lipids/FBS TBO Vaccinations declined Covid booster today, start Shingrix series and PCV13 today Dental visit counseled to make an appointment with dentist Weight loss 02/06/2023 Diverticular disease 10/25/2022 Internal hemorrhoids 10/25/2022 Slow transit constipation 10/25/2022 Visual impairment 12/18/2017 Assessment & Plan (11/06/2023 1:36 PM EST): Will fu on status of cataract surgery with [facility] Fu at next appt. Varicose veins of lower extremity 09/27/2016 Anxiety disorder 01/06/2013 Assessment & Plan (10/25/2022 8:35 PM EST): Using hydroxyzine prn, few times per month Feels safe at home, fu prn Eosinophil count raised 09/18/2011 Essential hypertension 09/18/2011 Assessment & Plan (08/10/2024 2:51 PM EDT): Uncontrolled today. Advised to check BP at home three times per week, ENGINEERING DIRECTOR will remind him and fu with RN in 4w. I will see him more often if BP is uncontrolled, otherwise I will fu with him in 4m Continue lisinopril + hctz same dose Counseled re low salt diet/increase moderate physical activity. Check home BP BIW and prn CP/LECHUGA/MATA Non smoking patient. Influenza IZ today, reminded to get covid booster at earliest convenience. Refer to Eye clinic (last appt on 03/2023, Dr Ramires) Assessment & Plan (02/10/2024 1:39 PM EDT): Fairly Controlled. Compliant w/meds Continue lisinopril/hctz same dose Counseled re low salt diet/increase moderate physical activity. Check home BP BIW and prn CP/LECHUGA/MATA Non smoking patient. F/u in 4 months Assessment & Plan (11/06/2023 1:37 PM EST): Controlled. Repeated is 140/84 Continue lisinopril + hctz Get labs done prior to next appt, order given to patient today again. Counseled re low salt diet/increase moderate physical activity. Check home BP BIW and prn CP/LECHUGA/MATA Non smoking patient. Assessment & Plan (05/05/2023 5:00 PM EDT): BP is at goal. no change in medications Counseled re low salt diet/increase moderate physical activity. Check home BP BIW and prn CP/LECHUGA/MATA Non smoking patient. FU with me in 2-3 months Assessment & Plan (10/25/2022 12:20 PM EST): Uncontrolled today. He hasn't taken his meds this amEncouraged complaince with meds, take them at the same time every day. Counseled re low salt diet/increase moderate physical activity. Check home BP BIW and prn CP/LECHUGA/MATA Non smoking patient. Check labs and fu w me in 2-3m Pure hypercholesterolemia 09/18/2011 Assessment & Plan (02/10/2024 1:43 PM EDT): Labs not done, I printed out the order to get labs prior to next visit Continue Simvastatin We discussed re rx options. Recommended moderate amount of exercise and increase consumption of fruit, vegetables, fish and high fiber foods. Should decrease consumption of highly saturated fats or trans fats. Assessment & Plan (05/03/2023 12:38 PM EDT): On low dose simvastatin needs to check lipid profile and FU withme in 2 month We discussed re rx options. She wants to be more strict with life style modifications. Recommended moderate amount of exercise and increased consumption of fruit, vegetables, fish and high fiber foods. We discussed about avoiding consumption of highly saturated fats or trans fats. 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 FU yearly Benign prostatic hyperplasia without urinary obs truction 02/01/2011 Encounters Date Type Department Care Team Description 02/26/2025 11:15 AM EDT Office Visit [facility] [address] [place] [phone] Adeola Watters MD Memory impairment (Primary Dx) 02/26/2025 Travel 02/25/[address] [phone] Adeola Watters MD chart prep 02/25/2025 Telephone [facility] [address] [place] [phone] Adeola Watters MD Nurse Triage 01/26/[address] [phone] Adeola Watters MD Chart prep 01/20/2025 Patient Outreach [address] [phone] Adeola Watters MD Pre-visit Planning (SDOH screening negative and tobacco screening negative) 12/29/2024 Refill [facility] [address] [place] [phone] Adeola Watters MD Other specified anxiety disorders 12/29/[address] [phone] Adeola Watters MD Other specified anxiety disorders from Last 3 Months Immunizations Immunization Administration Dates Next Due Influenza High-dose Quadriva lent Preservative Free 07/19/2023,08/03/2020 Influenza Injectable Quadriv alant Preservative Free IIV4 MDCK 10/03/2021,11/25/2017 Influenza injectable quadriv alent IIV4 with preservative 09/27/2016,06/28/2015 Influenza injectable quadriv alent preservative free 08/23/2022,07/14/2019,09/25/2018 Influenza, High Dose Seasona l, Preservative Free 08/10/2024 Influenza, IIV3, injectable 07/13/2014 Influenza, Split (incl. rogelio fied surface antigen) 07/03/2013,06/13/2012 Pneumococcal Conjugate PCV 20 11/06/2023 Pneumococcal Polysaccharide PPSV23 02/06/2019, TD (adult), 2 Lf tetanus tox oid, preservative free, adsorbed 02/10/2024 Tdap 10/28/2013 Zoster, Recombinant 02/12/2024 Zoster, live 07/14/2019 Social History Tobacco Use Types Packs/Day Years [...] not to disclose 2021 10:18 AM EDT Last Filed Vital Signs Vital Sign Reading [...] Mass Index 21.59 02/26/2025 11:36 AM EDT Plan of Treatment Upcoming Encounters Date Type Department Care Team (Late st Contact Info) Description 06/10/2025 11:15 AM EDT Office Visit [facility] [address] [place], [place] [phone] Adeola Watters MD [address] [place] [address] Health Maintenance Due Date Last Done Comments Alcohol/Substance Use Screening 1947 Dental X-Ray: Full Mouth 03/03/2012 03/02/2009 RSV Patients and Patients Aged 60 years or older (1 - 1-dose 75+ series) 2012 Dental Prophylaxis 07/26/2016 01/24/2016, 1 , 01/14/2015, Additional history exists Dental Oral Exam 07/28/2016 01/26/2016, 03/2015, 01/14/2015, Additional history exists Dental X-Ray: Bitewings 01/24/2017 01/24/20 16, 01/14/2015, 12/06/2010, Additional history exists Zoster Vaccines (3 of 3) 04/08/2024 02/12/2024, 1010/2018 COVID-19 Vaccine ( season) 2024 04/24/2022, 09/18/2021, 01/19/2021, Additional history exists Depression Screening 11/06/2024 11/06/2023, 11/06/19 24 SDOH Screening 01/20/2026 01/20/2025 Tobacco Screening 02/26/2026 02/26/2025 Lipid Panel 02/11/2029 02/12/2024, 07/0 04/2022, 08/05/2020 DTaP/Tdap/Td Vaccines (3 - Td or Tdap) 02/09/2034 02/10/2024, 10/28/2013 Pneumococcal Vaccine: 50+ Years Completed 11/06/2023, 02/06/2019, 10/02/2010 Influenza Vaccine Completed 08/10/2024, , 08/23/2022, Additional history exists HIB Vaccines Aged Out No longer eligi ble based on patient's age to complete this topic HPV Vaccines Aged Out No longer eligi ble based on patient's age to complete this topic Hepatitis A Vaccines Aged Out No long er eligible based on patient's age to complete this topic Hepatitis B Vaccines Aged Out No long er eligible based on patient's age to complete this topic IPV Vaccines Aged Out No longer eligi ble based on patient's age to complete this topic Meningococcal B Vaccine Aged Out No l onger eligible based on patient's age to complete this topic Meningococcal Vaccine Aged Out No dio karen eligible based on patient's age to complete this topic RSV under 20 months Aged Out No longe r eligible based on patient's age to complete this topic Rotavirus Vaccines Aged Out No longer eligible based on patient's age to complete this topic Procedures Procedure Name Priority Date/Time Associated Diagnosis Comments TSH W/REFLEX TO FT4 Routine 01/02/2025 5 :26 PM EDT HIGH SENSITIVITY TROPONIN I Routine 01/02/2025 5:26 PM EDT ETHANOL Routine 01/02/2025 5:26 PM EDT MAGNESIUM Routine 01/02/2025 5:26 PM EDT COMPREHENSIVE METABOLIC PANEL Routine 01/02/2025 5:26 PM EDT CBC WITH AUTO DIFFERENTIAL Routine 01/02/2025 5:26 PM EDT LIPID PANEL WITH REFLEX TO DIRECT LDL Routine 02/12/2024 12:40 PM EDT PERIODIC ORAL EVALUATION - ESTABLISHED PATIENT Routine 01/26/2016 12:00 AM EDT PROPHYLAXIS - ADULT Routine 01/24/2016 1 2:00 AM EDT BITEWINGS - 4 RADIOGRAPHIC IMAGES Routine 01/24/2016 12:00 AM EDT INTRAORAL - COMPLETE SERIES OF RADIOGRAPHIC IMAGES Routine 03/02/2009 12:00 AM EDT from Last 3 Months or Most Recently Relevant to Health Maintenance Results * High Sensitivity Troponin I (01/02/2025 5:26 PM EDT) [facility] TROPONIN I HIGH SENSITIVITY <2.7 <3.5 - 35.0 ng/L [facility] Comment:The Edmondson high sens itivity Troponin-I results should beused in conjunction with other diagnostic information suchas ECG, clinical observations and information, and patientsymptoms to aid in the diagnosis of VT. 01/02/2025 5:26 PM EDT 01/02/2025 5:30 PM EDT Generic External Data Provider LAB BLOOD ORDERAB LES Final Result Performing Organization Address [facility]/ZIP Co de Phone Number [facility] [address] [place] [phone] * Ethanol (01/02/2025 5:26 PM EDT) [facility] ETHANOL (MG/DL) IN SER/PLAS <10 mg/dL [facility] Comment:Serum/plasma ethanol results are to be used formedical/treatment purposes only. 01/02/2025 5:26 PM EDT 01/02/2025 5:30 PM EDT Generic External Data Provider LAB BLOOD ORDERAB LES Final Result Performing Organization Address [facility] Co de Phone Number [facility] [address] [place] [phone] * TSH with Reflex to Free T4 (01/02/2025 5:26 PM EDT) [facility] TSH reflex Free T4 2.68 0.32 - 4.0 uIU/mL [facility] 01/02/2025 5:26 PM EDT 01/02/2025 5:30 PM EDT us Generic External Data Provider LAB BLOOD ORDERAB LES Final Result [facility] [address] [place] [phone] * (ABNORMAL) CBC auto differential (01/02/2025 5:26 PM EDT) White Blood Count 6.7 4.8 - 10.8 X10*3/uL [facility] Red Blood Count 4.26(L) 4.60 - 5.80 X10*6/uL [facility] Hemoglobin 13.7(L) 14.0 - 18.0 g/dl [facility] Hematocrit 38.2(L) 42.0 - 52.0 % [facility] Mean Corpuscular Volume 89.7 80.0 - 98.0 fL [facility] Mean Corpuscular Hemoglobin 32.2 27.0 - 33.0 pg [facility] Mean Corpuscular HGB Conc 35.9 31.0 - 36.0 g/dl [facility] Red Cell Distribution Width 11.8 11.0 - 16.0 % [facility] Platelet Count 208 160 - 400 X10*3/uL [facility] Mean Platelet Volume 10.1 9.4 - 12.4 fL [facility] Neutrophils Percent Auto 60.5 45 - 73 % [facility] Imm Gran Pct Auto 0.3 0.0 - 0.4 % [facility] Lymphocytes Percent Auto 19.5(L) 20 - 40 % [facility] Monocytes Percent Auto 7.0 2 - 11 % [facility] Eosinophils Percent Auto 12.3(H) 0 - 4 % [facility] Basophils Percent Auto 0.4 0 - 2 % [facility] NRBC Pct Auto 0.0 0.0 - 0.2 /100WBC [facility] Neutrophils Absolute Auto 4.0 2.0 - 8.3 x10*3/uL [facility] Imm Gran Abs Auto 0.02 0.00 - 0.03 X10*3/uL [facility] Lymphocytes Absolute Auto 1.3 1.2 - 4.9 X10*3/uL [facility] Monocytes Absolute Auto 0.5 0.1 - 1.2 X10*3/uL [facility] Eosinophils Absolute Auto 0.8(H) 0.0 - 0.4 X10*3/uL [facility] Basophils Absolute Auto 0.0 0.0 - 0.2 X10*3/uL [facility] NRBC Abs Auto 0.000 0.0 - 0.012 X10*3/uL [facility] 01/02/2025 5:26 PM EDT 01/02/2025 5:30 PM EDT Generic External Data Provider LAB BLOOD ORDERAB LES Final Result Performing Organization Address [facility]/ZIP Co de Phone Number [facility] [address] [place] [phone] * Magnesium (01/02/2025 5:26 PM EDT) [facility] Magnesium 2.1 1.6 - 2.6 mg/dL [facility] 01/02/2025 5:26 PM EDT 01/02/2025 5:30 PM EDT Generic External Data Provider LAB BLOOD ORDERAB LES Final Result Performing Organization Address [facility] Co de Phone Number [facility] [address] [place] [phone] * Comprehensive Metabolic Panel (01/02/2025 5:26 PM EDT) Pathologist [facility] Sodium 139 135 - 145 mmol/L [facility] Potassium 4.0 3.3 - 5.1 mmol/L [facility] Chloride 103 96 - 108 mmol/L [facility] Carbon Dioxide 27 22 - 29 mmol/L [facility] Anion Gap 13 12 - 20 [facility] Urea Nitrogen (BUN) 13 9 - 16 mg/dL [facility] Creatinine, Serum 0.65 0.5 - 1.4 mg/dL [facility] Creatinine Clr Calc Pharmacy 72.2 [facility] Comment:eGFR (calculated fro m the MDRD study equation) and eCrCl(calculated from the Cockcroft-Gault equation) are based ondifferent parameters and may not yield comparable results.If eCrCl result is absurd, please check patient'sheight/weight. Estimated Glomerular Filt Rate >60 [facility] Comment:Chronic Kidney Disea se: Estimated GFR < 60 mL/min/1.58x3Nycmij Kidney Disease: Estimated GFR < 15 mL/min/1.73m2 Glucose 92 60 - 115 mg/dL [facility] Calcium 9.3 8.4 - 10.2 mg/dL [facility] Bilirubin, Total 0.8 0.0 - 1.0 mg/dL [facility] Aspartate Amino Transferase 20 5 - 37 U/L [facility] Alanine Aminotransferase 13 0 - 40 U/L [facility] Total Protein 7.7 6.5 - 8.0 g/dL [facility] Albumin Level 4.2 3.5 - 5.0 g/dL [facility] Alkaline Phosphatase 71 39 - 117 U/L [facility] 01/02/2025 5:26 PM EDT 01/02/2025 5:30 PM EDT us Generic External Data Provider LAB BLOOD ORDERAB LES Final Result [facility] [address] [place] [phone] [phone] * (ABNORMAL) Lipid Panel with Reflex to Direct LDL (02/12/2024 12:40 PM EDT) Triglycerides 82 <150 mg/dL [facility] Comment:Desirable Triglyceri de: less than 150 mg/dLBorderline High Triglyceride 150-199 mg/dLHigh Triglyceride: 200-499 mg/dLVery High Triglyceride: greater than or equal to 5OO mg/dL Cholesterol 169 <200 mg/dL [facility] Comment:Desirable Cholestero l: less than 200 mg/dLBorderline High Cholesterol: 200-239 mg/dLHigh Cholesterol: greater than 239 mg/dL LDL Cholesterol Calculated 103(H) <100 mg/dL [facility] Comment:Desirable LDL: less than 100 mg/dLNear Optimal/Above Optimal LDL: 110- 129 mg/dLBorderline High LDL: 130-159 mg/dLHigh LDL: 160-189 mg/dLVery High LDL: greater than or equal to 190 mg/dL HDL Cholesterol 50 >40 mg/dL [facility] Comment:Desirable HDL: great er than 40 mg/dL Note: This HDL assay may give artificially low results in patients with liver disease. 02/12/2024 12:4 0 PM EDT 02/12/2024 12:40 PM EDT Adeoal Watters MD LAB BLOOD ORDERABLES Fin al Result [facility] [address] [place] [phone] from Last 3 Months or Most Recently Relevant to Health Maintenance Insurance [facility] [employer] (HMO D-SNP) KARL GILMORE [id number] DENTAL - [facility] Care Teams Street Light Servicer Relationship Specialty Start Date End Date Adeola Watters MD [address] [place] [phone] PCP - General Family Medicine 05/29/17
[2025-02-26 16:35] LABS: Anion Gap 12 (12-20); Blood Urea Nitrogen 17 mg/dL (9-16); Calcium 9.7 mg/dL (8.4-10.2); Carbon Dioxide 31 mmol/L (22-29); Chloride 103 mmol/L (96-108); Estimated Glomerular Filt Rate > 60; Glucose Random 87 mg/dL (60-115); Potassium 4.3 mmol/L (3.3-5.1); Sodium 142 mmol/L (135-145)
[2025-02-26 17:09] LABS: Folate 13.5 ng/mL (> or = 4.0); Vitamin B12 361 pg/mL (200-900)
[2025-02-27 07:48] LABS: Syphilis Screen Nonreactive (Nonreactive)
== END 2025-02-26 12:40 | disposition home or self-care (01) ==
LOC: HO.HHCL 12:39
PROVIDERS: Visit Provider Internal Medicine
DX: R41.3 Other amnesia (principal)
CPT/HCPCS: 36415; 80048; 82607; 82746; 86780